=== PATIENT | male | born 1965 | race Asian ===

== ENCOUNTER 2025-01-11 20:29 | Inpatient (IN) | payer OTHER ==
[~2025-01-11] VITALS: Ht 172.7 cm; Wt 68.0 kg
[2025-01-11] MEDS ORDERED: ONDANSETRON 4 MG/2 ML VIAL ONE (20:46)
[2025-01-11] MEDS: ONDANSETRON 4 MG/2 ML VIAL IV ONE (21:02)
[2025-01-11 21:03] LABS: PLATELET COUNT (AUTO) 295 K/uL (152-348); RED CELL DISTRIBUTION WIDTH 15.9 % (12.1-16.2); WHITE BLOOD COUNT (AUTO) 14.4 K/uL (3.6-10.2)
[2025-01-11 21:05] LABS: RED BLOOD CELL COUNT(AUTO) 7.12 MIL/uL (4.06-5.63)
[2025-01-11 21:11] LABS: CREATININE 3.1 mg/dL (0.6-1.3); SODIUM SERUM 134 mmol/L (136-145); UREA NITROGEN, BLOOD 36 mg/dL (7-18)
[2025-01-11] MEDS ORDERED: IV NORMAL SALINE 500 ML IV ONE (21:15)
[2025-01-11] MEDS: FENTANYL CITRATE 100 MCG/2 ML AMPUL IV ONE (21:19)
[2025-01-11 21:20] LABS: LACTIC ACID 5.7 mmol/L (0.4-2.0)
[2025-01-11] MEDS ORDERED: CEFEPIME HCL 2 GM VIAL ONE (21:21)
[2025-01-11] MEDS: CEFEPIME HCL 2 G in IV DEXTROSE 5% 50 ML IV ONE (21:23)
[2025-01-11] MEDS: IV NORMAL SALINE 1000 ML BAG IV ONE (21:23)
[2025-01-11 21:25] LABS: ASPARTATE AMINOTRANSFERASE 30 U/L (15-37); TOTAL PROTEIN, SERUM 8.5 g/dL (6.4-8.2)
[2025-01-11] MEDS ORDERED: ATOR10TA PO (21:38)
[2025-01-11] MEDS ORDERED: LEVO750T46 PO (21:38)
[2025-01-11] MEDS ORDERED: TRAM50TA2 PO (21:38)
[2025-01-11] MEDS ORDERED: TAMS-3 PO (21:38)
[2025-01-11] MEDS ORDERED: TRAZ150T75 PO (21:38)
[2025-01-11] MEDS ORDERED: GLIP5TAB26 PO (21:38)
[2025-01-11] MEDS ORDERED: LOSA1TAB36 PO (21:38)
[2025-01-11] MEDS ORDERED: HYDR-4174 TP (21:38)
[2025-01-11 21:51] LABS: *BLOOD, URINE NEGATIVE (NEGATIVE); *CLARITY,URINE CLEAR (CLEAR); *COLOR,URINE YELLOW (YELLOW); *KETONES,URINE TRACE (NEGATIVE); *PROTEIN,URINE TRACE (NEGATIVE); *UROBILINOGEN,URINE 0.2 E.U./dl (NORMAL); LEUKOCYTE ESTERASE ,URINE 1+ (NEGATIVE); NITRITE, URINE POSITIVE (NEGATIVE); UGLUCOSE NEGATIVE (NEGATIVE)
[2025-01-11 21:57] LABS: *BILIRUBIN,URIN 1+ (NEGATIVE)
[2025-01-11] MEDS ORDERED: MORPHINE SULFATE 2 MG/1 ML DISP.SYRIN ONE (22:02)
[2025-01-11] MEDS: MORPHINE SULFATE 2 MG/1 ML DISP.SYRIN IV ONE (22:26)
[2025-01-12] MEDS ORDERED: ACETAMINOPHEN 325 MG TABLET PO PRN (00:15)
[2025-01-12] MEDS ORDERED: ENOXAPARIN SODIUM 40 MG/0.4 ML DISP.SYRIN SQ SCH (00:15)
[2025-01-12] MEDS: FAMOTIDINE. 20 MG/2 ML VIAL IV ONE (00:22)
[2025-01-12] MEDS ORDERED: DEXTROSE 50% 50 ML DISP.SYRIN IV PRN (00:30)
[2025-01-12] MEDS: ONDANSETRON 4 MG/2 ML VIAL IV PRN (00:43)
[2025-01-12 01:00] VITALS: BP 126/64
[2025-01-12] MEDS: BLOOD SUGAR DIAGNOSTIC 1 EACH STRIP VI SCH (01:08)
[2025-01-12] MEDS: HYDROCODONE/APAP 5-325MG TABLET PO PRN ×2 (02:56→15:15)
[2025-01-12 06:00] VITALS: BP 120/71; TEMP 98; O2SAT 99
[2025-01-12] MEDS: PANTOPRAZOLE SODIUM 40 MG TABLET.DR PO SCH (06:10)
[2025-01-12 07:06] LABS: PLATELET COUNT (AUTO) 248 K/uL (152-348); RED BLOOD CELL COUNT(AUTO) 5.78 MIL/uL (4.06-5.63); RED CELL DISTRIBUTION WIDTH 15.6 % (12.1-16.2); WHITE BLOOD COUNT (AUTO) 10.5 K/uL (3.6-10.2)
[2025-01-12 07:31] VITALS: BP 122/80; TEMP 98.3; O2SAT 99
[2025-01-12 08:06] LABS: LYMPHOCYTES % (MANUAL) 15 % (20-40); MONOCYTES % (MANUAL) 3 % (2-10); NEUTROPHILS % (MANUAL) 82 % (42-75); PLATELET ESTIMATE ADEQUATE
[2025-01-12] MEDS: MAG HYDROX/AL HYDROX/SIMETH 30 ML LIQUID UDC PO ONE (08:26)
[2025-01-12] MEDS: ASPIRIN 81 MG TAB.CHEW PO SCH (08:27)
[2025-01-12] MEDS: HEPARIN SODIUM,PORCINE 5,000 UNITS/ML VIAL SQ SCH (08:29)
[2025-01-12] MEDS: INSULIN REGULAR, HUMAN 1000 UNIT/10 ML VIAL SQ PRN (08:30)
[2025-01-12 09:52] LABS: CREATININE 3.0 mg/dL (0.6-1.3); SODIUM SERUM 134.0 mmol/L (136-145); UREA NITROGEN, BLOOD 41.0 mg/dL (7-18)
[2025-01-12 11:01] VITALS: BP 125/75; TEMP 98.6; O2SAT 99
[2025-01-12] MEDS: BENZOCAINE/MENTH/CETYLPYRD LOZENGE MM PRN (12:14)
[2025-01-12] MEDS ORDERED: AMLO10TA59 PO (12:45)
[2025-01-12 15:02] VITALS: BP 104/83; TEMP 98.4; O2SAT 95
[2025-01-12] MEDS: IV NS 1000 ML 1,000 ML IV PRN (16:00)
[2025-01-12 19:00] VITALS: BP 109/79; TEMP 98.4; O2SAT 100
[2025-01-12] MEDS: CEFEPIME HCL 1 G in IV DEXTROSE 5% 50 ML IV SCH (20:14)
[2025-01-12] MEDS: ATORVASTATIN 10 MG TABLET PO SCH (20:15)
[2025-01-12] MEDS: TAMSULOSIN HCL 0.4 MG CAP.SR.24H PO SCH (20:15)
[2025-01-13] VITALS: BP 125/79; O2SAT 99
[2025-01-13] MEDS: LORAZEPAM 0.5 MG TABLET PO ONE (01:25)
[2025-01-13 04:00] VITALS: BP 122/78; TEMP 98.5; O2SAT 99
[2025-01-13 07:06] LABS: PLATELET COUNT (AUTO) 241 K/uL (152-348); RED BLOOD CELL COUNT(AUTO) 5.59 MIL/uL (4.06-5.63); RED CELL DISTRIBUTION WIDTH 16.1 % (12.1-16.2); WHITE BLOOD COUNT (AUTO) 9.1 K/uL (3.6-10.2)
[2025-01-13 07:30] VITALS: BP 123/79; TEMP 97.5; O2SAT 100
[2025-01-13 07:35] LABS: CREATININE 2.3 mg/dL (0.6-1.3); SODIUM SERUM 137.0 mmol/L (136-145); UREA NITROGEN, BLOOD 32.0 mg/dL (7-18)
[2025-01-13 09:13] LABS: *BILIRUBIN,URIN NEGATIVE (NEGATIVE); *BLOOD, URINE NEGATIVE (NEGATIVE); *CLARITY,URINE CLEAR (CLEAR); *COLOR,URINE YELLOW (YELLOW); *KETONES,URINE 2+ (NEGATIVE); *PROTEIN,URINE NEGATIVE (NEGATIVE); *UROBILINOGEN,URINE 0.2 E.U./dl (NORMAL); LEUKOCYTE ESTERASE ,URINE 1+ (NEGATIVE); NITRITE, URINE NEGATIVE (NEGATIVE); UGLUCOSE NEGATIVE (NEGATIVE)
[2025-01-13 09:27] LABS: *CREATININE,URINE 105.0 mg/dL (30-125); *SODIUM RNDM,URINE 54.0 mmol/L (40-220); *URINE TOTAL PROTEIN RANDOM 22.3 mg/dL (<150/24HR)
[2025-01-13 11:33] VITALS: BP 107/74; TEMP 97.6; O2SAT 100
[2025-01-13] MEDS ORDERED: NEOMY/BACITRA/POLYMYXIN B OINT UD PACKET TP ONE (11:45)
[2025-01-13] MEDS: diphenhydrAMINE 25 MG CAP PO PRN (11:45)
[2025-01-13] MEDS: NEOMY/BACITRAC/POLYMI OINT 28.35 GM TUBE TP PRN (12:05)
[2025-01-13] MEDS: VENLAFAXINE XR 75 MG TAB.ER.24H PO SCH (12:05)
[2025-01-13 15:48] VITALS: BP 96/72; TEMP 97.6; O2SAT 100
[2025-01-13 19:25] VITALS: BP 124/66; TEMP 97.2; O2SAT 99
[2025-01-13] MEDS: LORAZEPAM 0.5 MG TABLET PO PRN (19:49)
[2025-01-13] MEDS: QUETIAPINE FUMARATE 25 MG TABLET PO SCH (20:39)
[2025-01-14 06:42] LABS: PLATELET COUNT (AUTO) 205 K/uL (152-348); RED BLOOD CELL COUNT(AUTO) 5.08 MIL/uL (4.06-5.63); RED CELL DISTRIBUTION WIDTH 15.4 % (12.1-16.2); WHITE BLOOD COUNT (AUTO) 7.2 K/uL (3.6-10.2)
[2025-01-14 06:58] LABS: CREATININE 1.9 mg/dL (0.6-1.3); SODIUM SERUM 133.0 mmol/L (136-145); UREA NITROGEN, BLOOD 27.0 mg/dL (7-18)
[2025-01-14 08:25] LABS: LYMPHOCYTES % (MANUAL) 38 % (20-40); MONOCYTES % (MANUAL) 4 % (2-10); NEUTROPHILS % (MANUAL) 58 % (42-75); PLATELET ESTIMATE ADEQUATE
[2025-01-14 11:36] VITALS: BP 130/90; TEMP 97.8; O2SAT 98
[2025-01-14] MEDS: NEUTRA PHOS PACKET PO ONE (16:07)
[2025-01-14] MEDS: MAGNESIUM HYDROXIDE 30 ML LIQUID UDC PO PRN (16:13)
[2025-01-14 16:18] VITALS: BP 147/88; TEMP 97.7; O2SAT 98
[2025-01-14 19:59] VITALS: BP 143/89; TEMP 98; O2SAT 98
[2025-01-14] MEDS: ZOLPIDEM 5 MG TABLET PO PRN (22:50)
[2025-01-15] MEDS: LORAZEPAM 1 MG TABLET PO ONE (02:49)
[2025-01-15 04:12] VITALS: BP 116/71; TEMP 98.5; O2SAT 98
[2025-01-15 05:04] VITALS: BP 148/89; TEMP 98; O2SAT 98
[2025-01-15 06:31] LABS: PLATELET COUNT (AUTO) 192 K/uL (152-348); RED BLOOD CELL COUNT(AUTO) 4.69 MIL/uL (4.06-5.63); RED CELL DISTRIBUTION WIDTH 15.4 % (12.1-16.2); WHITE BLOOD COUNT (AUTO) 7.1 K/uL (3.6-10.2)
[2025-01-15 06:40] LABS: CREATININE 1.6 mg/dL (0.6-1.3); SODIUM SERUM 138.0 mmol/L (136-145); UREA NITROGEN, BLOOD 20.0 mg/dL (7-18)
[2025-01-15 11:45] VITALS: BP 145/94; TEMP 97.7; O2SAT 97
[2025-01-15] MEDS ORDERED: POTASSIUM CHLORIDE 50 ML IV SCH (12:00)
[2025-01-15] MEDS ORDERED: MAGNESIUM OXIDE 400 MG TABLET PO SCH (12:00)
[2025-01-15] MEDS ORDERED: POTASSIUM CHLORIDE 10 MEQ TAB.PRT.SR PO SCH (12:00)
[2025-01-15 15:25] VITALS: BP 133/86; TEMP 97.8; O2SAT 99
[2025-01-15] MEDS: NEUTRA PHOS PACKET PO ONE (16:26)
[2025-01-15 19:30] VITALS: BP 126/73; TEMP 97.2; O2SAT 100
[2025-01-16 06:14] VITALS: BP 114/68; TEMP 98.3; O2SAT 100
[2025-01-16 07:10] LABS: PLATELET COUNT (AUTO) 195 K/uL (152-348); RED BLOOD CELL COUNT(AUTO) 4.39 MIL/uL (4.06-5.63); RED CELL DISTRIBUTION WIDTH 15.8 % (12.1-16.2); WHITE BLOOD COUNT (AUTO) 5.3 K/uL (3.6-10.2)
[2025-01-16 07:19] LABS: CREATININE 1.2 mg/dL (0.6-1.3); SODIUM SERUM 140.0 mmol/L (136-145); UREA NITROGEN, BLOOD 13.0 mg/dL (7-18)
[2025-01-16] MEDS: CEFEPIME HCL 1 G in IV DEXTROSE 5% 50 ML IV SCH (11:09)
[2025-01-16 12:00] VITALS: BP 127/72; TEMP 98; O2SAT 99
[2025-01-16] MEDS ORDERED: NITR-84 PO (15:48)
[2025-01-16] MEDS ORDERED: QUET25TA36 PO (15:48)
[2025-01-16] MEDS ORDERED: VENL75CA62 PO (15:48)
[2025-01-16] MEDS ORDERED: NITR50CA PO (15:48)
== END 2025-01-16 17:35 | disposition home or self-care (01) | DRG 698 ==
LOC: ER 20:29 → TELE3 01-12 00:05 → MEDSURG3 01-13 08:37
PROVIDERS: ADMIT Registered Nurse Psychiatric/Mental Health; ATTEND Student in an Organized Health Care Education/Training Program
PROC: 05HA33Z Insertion of Infusion Device into Left Brachial Vein, Percutaneous Approach (ICD-10-PCS; principal; 2025-01-12)
DX: T83.510A Infection and inflammatory reaction due to cystostomy catheter, initial encounter (principal); A41.02 Sepsis due to Methicillin resistant Staphylococcus aureus; A41.81 Sepsis due to Enterococcus; N17.0 Acute kidney failure with tubular necrosis; R65.20 Severe sepsis without septic shock; N39.0 Urinary tract infection, site not specified; F33.3 Major depressive disorder, recurrent, severe with psychotic symptoms; E87.20 Acidosis, unspecified; E87.1 Hypo-osmolality and hyponatremia; L72.0 Epidermal cyst; D36.13 Benign neoplasm of peripheral nerves and autonomic nervous system of lower limb, including hip; K21.9 Gastro-esophageal reflux disease without esophagitis; I12.9 Hypertensive chronic kidney disease with stage 1 through stage 4 chronic kidney disease, or unspecified chronic kidney disease; N18.30 Chronic kidney disease, stage 3 unspecified; E11.22 Type 2 diabetes mellitus with diabetic chronic kidney disease; E78.5 Hyperlipidemia, unspecified; N40.0 Benign prostatic hyperplasia without lower urinary tract symptoms; B95.2 Enterococcus as the cause of diseases classified elsewhere; B95.62 Methicillin resistant Staphylococcus aureus infection as the cause of diseases classified elsewhere; Y73.8 Miscellaneous gastroenterology and urology devices associated with adverse incidents, not elsewhere classified; Y92.89 Other specified places as the place of occurrence of the external cause; K44.9 Diaphragmatic hernia without obstruction or gangrene; E11.65 Type 2 diabetes mellitus with hyperglycemia; I45.10 Unspecified right bundle-branch block; K57.30 Diverticulosis of large intestine without perforation or abscess without bleeding; K80.20 Calculus of gallbladder without cholecystitis without obstruction; Z79.899 Other long term (current) drug therapy; Z87.440 Personal history of urinary (tract) infections; Z79.84 Long term (current) use of oral hypoglycemic drugs; Z87.828 Personal history of other (healed) physical injury and trauma
CPT/HCPCS: 36415; 70030-TC; 71045; 73700; 83605; 83690; 83735; 84100; 84300; 84443; 84484; 85025; 85730; 87040; 87077; 87086; 93307; 97535-GO-CO; A4606; A4663; G0378; J0692; J1308; J1644; J1815; J2270; J2405; J3010; J7040; Q0163